=== PATIENT | male | born 1955 | race Two or more races ===

== ENCOUNTER 2023-02-06 11:12 | Outpatient (CLI) | payer OTHER | END 2023-02-06 11:14 | disposition home or self-care (01) | LOC: SONOGRAMA 11:12 | PROVIDERS: ATTEND Pathology Anatomic Pathology & Clinical Pathology | DX: R22.1 Localized swelling, mass and lump, neck (principal) ==

== ENCOUNTER 2023-03-10 06:15 | Inpatient (IN) | payer OTHER ==
[~2023-03-10] VITALS: Ht 185.4 cm; Wt 100.7 kg
[~2023-03-10 06:15] MED LIST: AMLODIPINE BESYL5 MG PO; CRESTOR10 MG PO; TAMS0.4C PO; VALSARTAN-HCTZ1 EAC4 PO
[2023-03-11] MEDS ORDERED: TADALAFIL20 MG (10:03)
== END 2023-03-11 10:22 | disposition home or self-care (01) | DRG 627 ==
LOC: CIR.AMB 06:15 → SURH 07:00 → EDSTATUS 11:45 → SURH 11:45 → CIR.AMB 11:45 → SURH 13:49
PROVIDERS: ADMIT Otolaryngology; ATTEND Otolaryngology
PROC: 0GTK0ZZ Resection of Thyroid Gland, Open Approach (ICD-10-PCS; principal; 2023-03-10 07:00)
DX: E04.2 Nontoxic multinodular goiter (principal); Z20.822 Contact with and (suspected) exposure to COVID-19